=== PATIENT | female | born 1965 | race Caucasian/White ===

== ENCOUNTER 2021-01-27 09:36 | Emergency (ER) | payer OTHER ==
[~2021-01-27 09:36] MED LIST: AMARYL2 MG PO; ASPIRIN EC81 MG PO; BASAGLAR K100 UNIT/1 SC; BUSPIRONE HCL15 MG PO; COREG 6.25MG6.25 MG PO; FEOSOL325 MG PO; HYDROCODONE-APA1 TAB PO; KLONOPIN0.5 MG PO; LIPITOR20 MG PO; LOSARTAN-HCTZ1 EACH PO; METFORMIN HCL500 MG PO; NEURONTIN300 MG PO; NITROQUIK SL0.4 MG SL; PAXIL10 MG PO; PREDNISONE 20MG20 MG PO; PRILOSEC20 MG PO; SM STOOL SOFTE PO; ZANTAC150 MG PO; ZOFRAN4 MG PO; ZOLOFT100 MG PO
[2021-01-27 12:04] LABS: INFLUENZA A NAA NEGATIVE (NEGATIVE)
[2021-01-27 12:12] LABS: CORONAVIRUS 2019 SARS-COV-2 POSITIVE (NEGATIVE)
[2021-01-27 14:29] LABS: BASOPHIL 0.8 % (0-2); EOSINOPHIL 2.3 % (0-5); HCT 40.1 % (37.0-47.0); HGB 12.5 g/dl (12.5-16.0); LYMPHOCYTE 24.1 % (15-48); MCH 27.8 pg (25.0-31.0); MCHC 31.2 g/dL (32.0-36.0); MCV 89.1 fL (78.0-100.0); MONOCYTE 12.7 % (0-12); MPV 10.9 fL (6.0-9.5); NEUTROPHIL 59.6 % (41-80); NRBC 0; PLT 319 K/uL (150-400); RDW 17.9 % (11.5-14.0)
[2021-01-27 15:02] LABS: PRO-BNP 239 pg/mL (<125)
[2021-01-27 15:09] LABS: ALBUMIN 3.7 g/dL (3.4-5.0); BILIRUBIN - TOTAL 0.2 mg/dL (0.2-1.0); BUN/CREAT RATIO (CALC) 13.9 RATIO; CREATININE 0.72 mg/dL (0.51-0.95); GLOBULIN (CALCULATION) 4.8 g/dL; POTASSIUM 3.8 mmol/L (3.5-5.1); TOTAL PROTEIN 8.5 g/dL (6.4-8.2)
[2021-01-27 15:27] LABS: LACTIC ACID 0.9 mmol/L (0.4-1.9)
[2021-01-27 15:42] LABS: BILIRUBIN NEGATIVE (NEGATIVE); BLOOD 1+ Ery/uL (NEGATIVE); CLARITY CLEAR (CLEAR); COLOR YELLOW (YELLOW); GLUCOSE (U) NORMAL (NORMAL); LEUKOCYTES NEGATIVE Leu/uL (NEGATIVE); NITRITE NEGATIVE (NEGATIVE); PROTEIN NEGATIVE (NEGATIVE); UROBILINOGEN 0.2 mg/dL (0.2-1.0)
[2021-01-27 15:57] LABS: SQUAMOUS EPITHELIAL CELLS RARE; URINARY WBC RARE
== END 2021-01-27 17:35 | disposition home or self-care (01) ==
LOC: FER 09:36
PROVIDERS: Emergency Medicine
DX: U07.1 COVID-19 (principal); E11.9 Type 2 diabetes mellitus without complications; F17.210 Nicotine dependence, cigarettes, uncomplicated; Z79.84 Long term (current) use of oral hypoglycemic drugs; Z88.8 Allergy status to other drugs, medicaments and biological substances
CPT/HCPCS: 36415; 71275; 80053; 81001; 82728; 83605; 83615; 83880; 84145; 84484; 85025; 86140; 93005; J1170; J2405; J7030; U0002

== ENCOUNTER 2021-01-28 11:20 | Emergency (ER) | payer OTHER | END 2021-01-28 15:53 | disposition home or self-care (01) | LOC: FER 11:20 | DX: U07.1 COVID-19 (principal); I25.2 Old myocardial infarction; I10 Essential (primary) hypertension; E11.9 Type 2 diabetes mellitus without complications; F17.210 Nicotine dependence, cigarettes, uncomplicated; Z23 Encounter for immunization; Z79.84 Long term (current) use of oral hypoglycemic drugs | CPT/HCPCS: 36600; 82803; M0245; Q0245 ==

== ENCOUNTER → 2021-11-06 | Day surgery (SDC) | payer OTHER ==
[~2021-11-06] VITALS: Ht 162.6 cm; Wt 77.6 kg
[~2021-11-06] MED LIST changes: +CAPLYTA42 MG PO; +FEROSUL325 MG PO; +LAMOTRIGINE100 MG PO; +LINZESS145 MCG PO; +MYRBETRIQ50 MG PO; +SOLIFENACIN SUC10 MG PO; +TAMSULOSIN HCL0.4 MG PO; +TRAZODONE 100M100 MG PO
== END | disposition home or self-care (01) ==
LOC: FAS 10-30 08:00
DX: D50.9 Iron deficiency anemia, unspecified (principal); D12.3 Benign neoplasm of transverse colon; R19.5 Other fecal abnormalities; K59.09 Other constipation; M19.90 Unspecified osteoarthritis, unspecified site; I25.10 Atherosclerotic heart disease of native coronary artery without angina pectoris; E11.40 Type 2 diabetes mellitus with diabetic neuropathy, unspecified; K21.9 Gastro-esophageal reflux disease without esophagitis; I10 Essential (primary) hypertension; E78.00 Pure hypercholesterolemia, unspecified; I25.2 Old myocardial infarction; Z79.82 Long term (current) use of aspirin; Z88.1 Allergy status to other antibiotic agents
CPT/HCPCS: J2250; J2704; J7120